=== PATIENT | female | born 1965 | race Caucasian/White ===

== ENCOUNTER 2020-09-20 21:28 | Emergency (ER) | payer SELFPAY ==
[2020-09-20 21:46] VITALS: BP 131/77; PULSE 84; RESP 16; TEMP 36.8; O2SAT 97; BMI 22.6
--- NOTE | 2020-09-21 00:15 | XRR_ITS ---
PROCEDURE INFORMATION: Exam: XR Lumbosacral Spine Exam date and time: 09/21/2020 12:15 AM Age: 55 years old Clinical indication: Injury or trauma; Blunt trauma (contusions or hematomas); Prior surgery; Surgery type: Gb; Patient HX: Fall last Saturday C/O persistent back pain. ; Additional info: Low back injury, fall TECHNIQUE: Imaging protocol: XR of the lumbosacral spine. Views: 2 or 3 views. COMPARISON: CT abdomen pelvis w con* [id number] 08/27/2018 1:50 AM FINDINGS: Bones/joints: There is mild scoliosis concave to the right. No fracture is identified. Intervertebral disc spaces are preserved. Soft tissues: Unremarkable. Vasculature: There are atherosclerotic changes in the abdominal aorta without evidence of aneurysm. XR/XR lumbar spine 2-3V* [id number] IMPRESSION: No fracture is identified.
--- NOTE | 2020-09-21 00:15 | XRR_ITS ---
PROCEDURE INFORMATION: Exam: XR Right Hip Exam date and time: 09/21/2020 12:15 AM Age: 55 years old Clinical indication: Injury or trauma; Blunt trauma (contusions or hematomas); Right; Patient HX: Fall last Saturday. C/O persistent hip pain. ; Additional info: Fall, pain TECHNIQUE: Imaging protocol: XR Right hip. Views: 2 or 3 views hip with pelvis when performed. COMPARISON: CT abdomen pelvis w con* [id number] 08/27/2018 1:50 AM FINDINGS: Bones/joints: Unremarkable. No acute fracture. Soft tissues: Unremarkable. XR/XR hip RT 2-3V wo/w pel* [id number] IMPRESSION: No acute findings.
--- NOTE | 2020-09-21 00:15 | ED_ITS ---
HPI - Back Pain/Injury General: Chief Complaint: Back Pain/Injury Stated Complaint: fell Saturday pm, increasing R hip & back pain Time Seen by Provider: 09/21/20 00:11 History of Present Illness: HPI Narrative: 55-year-old female comes in this evening for complaints of a fall with injury to the low back and right hip. Patient reports that she fell on the fourth, 3 days ago, since then she has had worsening pain over the last 2 to 3 days. Patient appears well. Patient appears no acute distress. Patient does appear in moderate pain. MD elicited complaint: fall Review of Systems General: Reports: 10 or more systems reviewed and unremarkable except in HPI and below Musc: Reports: other (Right lumbar back pain and hip pain.) Physical Exam Const: COMMON NORMALS: no acute distress and patient oriented x3 GENERAL APPEARANCE: cooperative HENMT: COMMON NORMALS: normocephalic and Normal external nose present HEAD & SCALP: normal to inspection and normocephalic NOSE: Normal external nose present MOUTH: Normal oral and palatal mucosa present Eye: GENERAL EYE: appearance normal, both eyes and all related structures Neck/C-Spine: COMMON NORMALS: full ROM Chest: COMMONS NORMALS: normal inspection of the chest Resp: COMMON NORMALS: normal respiratory effort EFFORT & INSPECTION: Yes able to speak in complete sentences Cardio: COMMON NORMALS: regular rate and regular rhythm RATE: regular rate RHYTHM: regular rhythm GI: COMMON NORMALS: non-tender Back/Pelvis: COMMON NORMALS: thoracic and lumbar spine normal to inspection LUMBAR SPINE/LOWER BACK: Yes paraspinal muscle spasm Lumbar paraspinal muscle spasm: right Extremity: COMMON NORMALS: normal to inspection Neuro: COMMON NORMALS: patient oriented x3 and moves all extremities Psych: COMMON NORMALS: mental status grossly normal and cooperative Skin: COMMON NORMALS: no rashes or lesions noted GENERAL SKIN EXAM: no rashes or lesions noted Course Vital Signs: Vital signs: Vital Signs Temperature 98.2 F 09/20/20 21:46 Pulse Rate 84 09/20/20 21:46 Respiratory Rate 20 H 09/21/20 00:39 Blood Pressure 131/77 09/20/20 21:46 Pulse Oximetry 97 09/20/20 21:46 MDM - Back Pain/Injury MDM Narrative: Medical decision making narrative: Patient comes in for evaluation of injury to the low back that started on Saturday. Patient reports increased pain and discomfort since falling on her right side on Saturday. On exam patient has some muscle tenderness to the right lower back and right hip area. Patient has normal range of motion. Patient is guarded with movement due to pain. Differential diagnosis includes fracture, strain, contusion. X-rays noted no fracture or other abnormality. Patient was given a dose of morphine 2 mg and 60 mg orphenadrine in the ER. Patient relief of pain. Patient was ordered tramadol for further treatment. Patient was also written a work note for 2 days and encouraged to stay as active as possible. Patient reported understanding. Discharge Plan Discharge Patient Disposition: Home Clinical Impression: Strain of lumbar region Qualifiers: Encounter type: initial encounter Qualified Code(s): S39.012A - Strain of muscle, fascia and tendon of lower back, initial encounter Contusion of hip, right Qualifiers: Encounter type: initial encounter Qualified Code(s): S70.01XA - Contusion of right hip, initial encounter Condition: Stable Prescriptions: New tramadol 50 mg tablet 50 mg PO Q6H PRN (Reason: pain) Qty: 12 RF: 0 Discharge Orders: Discharge ED (Routine); Ordered 09/21/20 Ordered By: Coleman Luna Discharge Diet: Usual diet Discharge Activity: Increase activity as tolerated Patient Instructions: Back Pain (ED), Opioid Safety Activity Restrictions/Additional Instructions: Activity as tolerated. Gentle stretching and range of motion exercises. Drink plenty of water with medication. Use acetaminophen for control of pain. Use tramadol for breakthrough pain. Follow-up with primary care for further instruction. Return to the emergency department for new concerns. Stand Alone Forms: Work/School Release Coding Level of Care Code ED Dental Amalgam Processor for Sherry Fwd Exam Comprehensive
[2020-09-21 00:39] VITALS: RESP 20
[2020-09-21] MEDS: morphine 4 mg/mL SDV 1 mL 2 MG IM (00:39)
[2020-09-21] MEDS: orphenadrine 30 mg/mL Inj 2 mL 60 MG IM (00:43)
[2020-09-21 01:08] VITALS: BP 133/65; PULSE 78; RESP 14; O2SAT 98
== END 2020-09-21 01:09 | disposition home or self-care (01) ==
PROVIDERS: Emergency Provider Nurse Practitioner Family
DX: S39.012A Strain of muscle, fascia and tendon of lower back, initial encounter (principal); S70.01XA Contusion of right hip, initial encounter; W19.XXXA Unspecified fall, initial encounter
CPT/HCPCS: 72100; 73502; 96372; 99283; J2270; J2360

== ENCOUNTER 2021-10-16 17:02 | Emergency (ER) | payer SELFPAY ==
[2021-10-16 17:11] VITALS: BP 144/73; PULSE 88; RESP 16; TEMP 37.1; O2SAT 98; BMI 21.4
--- NOTE | 2021-10-16 17:22 | ED_ITS ---
HPI - Extremity Problem General: Chief complaint: Extremity Problem,Nontraumatic Stated complaint: Left knee pain Time Seen by Provider: 10/16/21 17:22 History of Present Illness: 56-year-old female comes in today with complaints of posterior left knee pain for the last 2 to 3 days. Patient also reports some abnormal swelling behind the knee. Patient has a history of some knee pain but no recent injuries. Patient appears well. Patient is a tobacco smoker. Patient reports no routine medications. Associated symptoms: Deny chest pain Review of Systems General: Reports: 10 or more systems reviewed and unremarkable except in HPI and below Card: Denies: chest pain Resp: Denies: dyspnea Musc: Reports: extremity pain (Left knee) Physical Exam Const: COMMON NORMALS: alert HENMT: COMMON NORMALS: normocephalic HEAD & SCALP: normocephalic Neck/C-Spine: COMMON NORMALS: full ROM Resp: COMMON NORMALS: normal respiratory effort Cardio: COMMON NORMALS: regular rate RATE: regular rate Extremity: LEFT LOWER EXTREMITY: Yes knee joint (Posterior tenderness, no o bvious severe swelling) Left knee: Yes inspection, Yes palpation and Yes ROM Neuro: SENSORIUM/ORIENTATION: Yes alert Skin: COMMON NORMALS: no rashes or lesions noted GENERAL SKIN EXAM: no rashes or lesions noted Course Vital Signs: Vital signs: Vital Signs Temperature 98.8 F 10/16/21 17:43 Pulse Rate 88 10/16/21 17:43 Respiratory Rate 16 10/16/21 17:43 Blood Pressure 144/73 10/16/21 17:43 Pulse Oximetry 98 10/16/21 17:43 Oxygen Delivery Me thod 10/16/21 17:43 MDM - Extremity (Nontraumatic) Medical Decision Making 56-year-old female comes in today with left posterior knee pain. On exam patient has some mild swelling in the posterior knee but no induration or redness is noted. Patient also reports tenderness. Negative Homans' sign. Differential diagnosis includes but not limited to Renae's cyst, tendinitis, DVT, osteoarthritis. X-ray notes some OA of the knee with some meniscal calcinosis, no DVT, and a Renae's cyst probable. Reviewed exam with patient with recommendations for follow-up with primary care. Patient will be started on some prednisone 20 mg twice a day for next 5 days. Patient also given few hydrocodone for severe pain. Patient reported understanding of care plan need for follow-up or return to the ER. Lab Data Radiology Impressions Knee X-Ray 10/16/21 17:33 IMPRESSION: 1. Mild meniscal chondrocalcinosis. 2. Minimal mediolateral compartment osteoarthritis given some very mild joint space narrowing. Soft Tissue Ultrasound 10/16/21 17:33 IMPRESSION: Along the medial left knee there is a 1.8 x 0.5 x 2.3 cm mildly complex fluid collection, perhaps reflecting a Renae's cyst or complex effusion. Venous Duplex 10/16/21 17:33 IMPRESSION: No evidence of deep vein thrombosis. Discharge Plan Discharge Patient Disposition: Home Clinical Impression: Renae's cyst of knee Qualifiers: Laterality: left Qualified Code(s): M71.22 - Synovial cyst of popliteal space [Renae], left knee Condition: Stable Prescriptions: New hydrocodone-acetaminophen 5-325 mg tablet 1 tab PO Q8H PRN (Reason: pain (scale score 7-10)) Qty: 10 0RF prednisone 20 mg tablet 20 mg PO BID 5 Days Qty: 10 0RF Discontinued tramadol 50 mg tablet 50 mg PO Q6H PRN (Reason: pain) Qty: 12 0RF Discharge Orders: Discharge ED (Routine); Ordered 10/16/21 Ordered By: Coleman Luna Discharge Diet: Usual diet Discharge Activity: Increase activity as tolerated Patient Instructions: Renae Cyst (ED) Activity Restrictions/Additional Instructions: Follow-up with primary care or orthopedist for further treatment and evaluation. Return to ER for new concerns or worsening symptoms such as high fever, increased redness and swelling. Coding Level of Care Code ED Storage Architect for Sherry Fwusha Exam Detailed
--- NOTE | 2021-10-16 17:33 | USR_ITS ---
PROCEDURE INFORMATION: Exam: US Left Non-Vascular Joint or Other Extremity Structure Exam date and time: 10/16/2021 6:08 PM Age: 56 years old Clinical indication: Pain: Pain posterior left knee; Additional info: Posterior left knee, probabl renae's cyst TECHNIQUE: Imaging protocol: Left US joint or other nonvascular extremity structure or structures. Real-time ultrasound with image documentation. Limited study. Exam focused on the lower extremity in the region of clinical interest. COMPARISON: [place] [id number] 10/16/2021 6:01 PM FINDINGS: Soft tissues: Along the medial left knee there is a 1.8 x 0.5 x 2.3 cm mildly complex fluid collection, perhaps reflecting a Renae's cyst or complex effusion. US/US soft tissue/extremity [id number] IMPRESSION: Along the medial left knee there is a 1.8 x 0.5 x 2.3 cm mildly complex fluid collection, perhaps reflecting a Renae's cyst or complex effusion.
--- NOTE | 2021-10-16 17:33 | USR_ITS ---
PROCEDURE INFORMATION: Exam: US Duplex Left Lower Extremity Veins, Limited Exam date and time: 10/16/2021 6:01 PM Age: 56 years old Clinical indication: Pain; Leg, lower; Left; Additional info: R/O dvt TECHNIQUE: Imaging protocol: Real-time Duplex ultrasound of the Left Lower Extremity with 2-D batres scale, color Doppler flow and spectral waveform analysis with image documentation. Limited exam focused on the left lower extremity veins. COMPARISON: CT abdomen pelvis w con* [id number] 08/27/2018 1:50 AM FINDINGS: Left deep veins: Unremarkable. The common femoral, femoral, proximal profunda femoral and popliteal veins are patent without thrombus. Normal Doppler waveforms. Normal compressibility and/or augmentation response. Left superficial veins: Unremarkable. Saphenofemoral junction is patent without thrombus. Soft tissues: Unremarkable. US/CV venous duplex [facility] [id number] IMPRESSION: No evidence of deep vein thrombosis.
--- NOTE | 2021-10-16 17:33 | XRR_ITS ---
PROCEDURE INFORMATION: Exam: XR Left Knee Exam date and time: 10/16/2021 6:14 PM Age: 56 years old Clinical indication: Pain; Knee; Left; Additional info: Knee pain TECHNIQUE: Imaging protocol: Radiologic exam of the Left knee. Views: 3 views. COMPARISON: US soft tissue/extremity [id number] 10/16/2021 6:08 PM FINDINGS: Bones/joints: Mild meniscal chondrocalcinosis. Minimal mediolateral compartment osteoarthritis given some very mild joint space narrowing. Soft tissues: Normal. XR/XR knee LT 3V* [id number] IMPRESSION: 1. Mild meniscal chondrocalcinosis. 2. Minimal mediolateral compartment osteoarthritis given some very mild joint space narrowing.
[2021-10-16 17:43] VITALS: BP 144/73; PULSE 88; RESP 16; TEMP 37.1; O2SAT 98
[2021-10-16] MEDS: dexamethasone 10 mg/mL INJ IM (19:05)
[2021-10-16] MEDS: HYDROcodone-acetaminophen 5-325 mg Tablet 1 TAB PO (19:06)
[2021-10-16 19:08] VITALS: PULSE 74; RESP 16; O2SAT 97
== END 2021-10-16 19:10 | disposition home or self-care (01) ==
PROVIDERS: Emergency Provider Nurse Practitioner Family
DX: M71.22 Synovial cyst of popliteal space [Baker], left knee (principal)
CPT/HCPCS: 73562; 76882; 93971; 96372; 99284; J1100

== ENCOUNTER 2021-12-13 14:02 | Emergency (ER) | payer SELFPAY ==
[2021-12-13 14:07] VITALS: BP 138/80; PULSE 89; RESP 14; TEMP 36.4; O2SAT 100; BMI 20.7
--- NOTE | 2021-12-13 14:14 | W.ED.EXTPRO ---
HPI - Extremity Problem General: Chief complaint: Extremity Problem,Nontraumatic Stated complaint: left leg pain Time Seen by Provider: 12/13/21 14:11 History of Present Illness: 56-year-old female comes in today with complaints of posterior left knee pain. Patient has a history of a Renae's cyst to the knee that was diagnosed about 4 to 5 months ago. Patient comes in today for increased pain and discomfort with ambulation. Patient denies any new injury. Associated symptoms: Deny fever(s) Review of Systems Const: Denies: fever(s) ENMT: Denies: throat pain GI: Denies: abdominal pain : Denies: flank pain Musc: Reports: joint pain Physical Exam Const: COMMON NORMALS: alert HENMT: COMMON NORMALS: normocephalic HEAD & SCALP: normocephalic Neck/C-Spine: COMMON NORMALS: full ROM Resp: COMMON NORMALS: normal respiratory effort and clear to auscultation bilaterally AUSCULTATION: clear to auscultation bilaterally Cardio: COMMON NORMALS: regular rate RATE: regular rate : COMMON NORMALS: Yes no CVA tenderness BLADDER/KIDNEY EXAM: Yes no CVA tenderness Back/Pelvis: COMMON NORMALS: no CVA tenderness Extremity: RIGHT LOWER EXTREMITY: Yes knee joint (Mild swelling to the posterior knee no palpable nodule.) Right knee: Yes inspection, Yes palpation and Yes ROM and Yes lower leg (No redness or swelling distally. Negative Homans' sign) Neuro: SENSORIUM/ORIENTATION: Yes alert Course Vital Signs: Vital signs: Vital Signs Temperature 97.6 F 12/13/21 14:07 Pulse Rate 89 12/13/21 14:07 Respiratory Rate 14 12/13/21 14:07 Blood Pressure 138/80 12/13/21 14:07 Pulse Oximetry 100 12/13/21 14:07 Oxygen Delivery Me thod 12/13/21 14:07 MDM - Extremity (Nontraumatic) Medical Decision Making 56-year-old female comes in with left lower leg pain. On exam patient has some tenderness in the posterior aspect of the knee. Distal sensations and pulses are intact. No obvious swelling or redness is noted to the extremity. Differential diagnosis includes but not limited to osteoarthritis of the knee, Renae's cyst, DVT. No signs or symptoms of DVT is noted. Patient has had a recent ultrasound that showed a Renae's cyst and I believe this might be flaring up on patient. Recommend patient take acetaminophen and hydrocodone for pain. Patient was given 10 mg of dexamethasone for anti-inflammatory effect. Patient should follow-up with orthopedist for further evaluation and treatment. Patient stated understanding and agreed to plan. Discharge Plan Discharge Patient Disposition: Home Clinical Impression: Renae's cyst of knee Qualifiers: Laterality: left Qualified Code(s): M71.22 - Synovial cyst of popliteal space [Renae], left knee Condition: Stable Prescriptions: Continued hydrocodone-acetaminophen 5-325 mg tablet 1 tab PO Q8H PRN (Reason: pain (scale score 7-10)) Qty: 12 0RF Discharge Orders: Discharge ED (Routine); Ordered 12/13/21 Ordered By: Coleman Luna Discharge Diet: Usual diet Discharge Activity: Increase activity as tolerated Patient Instructions: Knee Pain (ED) Activity Restrictions/Additional Instructions: Activity as tolerated. Use acetaminophen to help control pain. Use hydrocodone for severe pain. Use ice and heat for further comfort. Increase activity as tolerated. Follow-up with orthopedist for further evaluation and treatment of Renae's cyst. Return to ER for new concerns or worsening symptoms such as high fever, increased redness and swelling to the lower leg, or new concerns. Coding Level of Care Code ED Employment And Claims Aide for Sherry Colin
[2021-12-13] MEDS: dexamethasone 10 mg/mL INJ IM (14:39)
== END 2021-12-13 14:47 | disposition home or self-care (01) ==
PROVIDERS: Emergency Provider Nurse Practitioner Family
DX: M71.22 Synovial cyst of popliteal space [Baker], left knee (principal)
CPT/HCPCS: 96372; 99284; J1100

== ENCOUNTER 2022-03-29 12:02 | Emergency (ER) | payer SELFPAY ==
[2022-03-29] VITALS (9 sets, daily range): BP systolic 101–116; BP diastolic 56–85; PULSE 79–95; RESP 16–18; TEMP 36.4; O2SAT 95–99; BMI 20.2
--- NOTE | 2022-03-29 13:16 | PC.PHAR ---
PT STATES SHE TAKES NO RX MEDICATIONS PT STATES ONLY BEEN TAKING OTC TYLENOL PRN
--- NOTE | 2022-03-29 13:23 | ECG_ITS ---
[facility] Test Date: 2022-03-29 Pat Name: Jennifer Li Department: Room: Gender: Female Medical Oncologist: : 1965 Requested By: Dick Avilez Order Number: [id number] Adam MD: Shiraz Tillman M.D. Measurements Intervals Artemas Rate: 83 P: 64 MD: 161 QRS: 69 QRSD: 88 T: 62 QT: 357 QTc: 421 Interpretive Statements SINUS RHYTHM Compared to ECG 05/01/2018 04:23:24 No significant changes Electronically Signed On 03-29-2022 20:43:52 MUD MIXER HELPER by Shiraz Tillman M.D. [id number]
--- NOTE | 2022-03-29 13:25 | ED_ITS ---
HPI - Weakness General: Chief complaint: Weakness Stated complaint: Fatigue and not feeling good. Time Seen by Provider: 03/29/22 13:09 Source: patient Mode of arrival: ambulatory Limitations: no limitations History of Present Illness: See nursing assessment. Patient with complaints of generalized fatigue for the past 2 weeks. She is also had pain to the left lower posterior rib cage. She denies any trauma. She states she has possibly had subjective fever occasionally. She denies any fever now. She does complain of mild nausea now. She denies any abdominal pain. She denies any chest pain. She denies any shortness of breath. She denies any peripheral edema. She denies any blood in her stool or melena. She denies any vomiting. Past medical history includes occasional anemia, peptic ulcer disease with 2 ruptured peptic ulcers that required surgical repair in the past. She reports that she has had bilateral ovaries and tubes removed. She states she is also had a cholecystectomy. She states she does smoke denies regular alcohol use. She takes no routine medications. She states she cannot take NSAIDs or aspirin due to history of peptic ulcer disease. She does not tolerate antihistamines. Associated symptoms: Reports nausea; Denies chest pain, chills, melena, fever(s) (No current or documented fever.), headache(s) or vomiting Review of Systems Const: Reports: fatigue; Denies: fever(s) (No current or documented fever.) or chills Eyes: Denies: change in vision ENMT: Reports: other (Patient has dentures); Denies: throat pain Card: Denies: chest pain or palpitations Resp: Denies: dyspnea or wheezing GI: Reports: nausea; Denies: abdominal pain, vomiting, hematemesis, dysphagia, change in bowel habits, hematochezia or melena : Reports: flank pain (Patient has no left flank pain but does have pain over the left lower ribs) and other (No rash.) Musc: Reports: other (No midline back pain. Mild pain to the left lower ribs. No crepitus); Denies: neck pain Skin/Breast: Denies: rash or pruritus Neuro: Denies: headache(s) or numbness in extremities Psych: Denies: anxiety Vick/Lymph: Denies: enlarged lymph nodes PFS ED Supplemental PFS Information: Laparotomies x2 due to ruptured peptic ulcers. Bilaterally ovaries removed. Cholecystectomy. Physical Exam Const: COMMON NORMALS: no acute distress, patient oriented x3, no limitations and well nourished GENERAL APPEARANCE: cooperative HENMT: COMMON NORMALS: normocephalic and atraumatic HEAD & SCALP: normocephalic and atraumatic FACE & SINUS: normal facial exam Eye: COMMON NORMALS: EOMs intact bilaterally Neck/C-Spine: COMMON NORMALS: full ROM, no lymphadenopathy, supple and no meningeal signs GENERAL: Yes normal visual inspection Lymph: LYMPHATIC: no lymphadenopathy noted Chest: COMMONS NORMALS: normal inspection of the chest and normal palpation of entire chest wall CHEST: No Ecchymosis present and No rash Resp: COMMON NORMALS: normal respiratory effort, No retractions and clear to auscultation bilaterally EFFORT & INSPECTION: No respiratory distress AUSCULTATION: clear to auscultation bilaterally Cardio: COMMON NORMALS: regular rate, regular rhythm and Peripheral pulses 2+ throughout JUGULAR VENOUS DISTENTION: no JVD RATE: regular rate RHYTHM: regular rhythm PERIPHERAL PULSES: Peripheral pulses 2+ throughout GI: COMMON NORMALS: Normal to inspection, nondistended, normoactive bowel sounds present and non-tender Back/Pelvis: OTHER: No CVA tenderness. However, patient does have a pain reproducible with palpation to left 11th and 12th ribs. No crepitus. No step-off. No palpable rib fracture. No ecchymosis or rash. Extremity: COMMON NORMALS: normal to inspection, full ROM and capillary refill normal Neuro: COMMON NORMALS: patient oriented x3, CN's II-XII intact bilaterally, no focal motor deficits and no sensory deficits noted MENINGEAL SIGNS: Yes no meningeal signs Psych: COMMON NORMALS: mental status grossly normal and Normal thought process present THOUGHT PROCESS: Normal thought process present Skin: COMMON NORMALS: no rashes or lesions noted and no wounds GENERAL SKIN EXAM: no rashes or lesions noted Course Vital Signs: Vital signs: Vital Signs Temperature 97.5 F L 03/29/22 12:09 Pulse Rate 81 03/29/22 17:00 Respiratory Rate 16 03/29/22 16:30 Blood Pressure 102/77 03/29/22 17:00 Pulse Oximetry 96 03/29/22 17:00 MDM - Weakness Medical Decision Making Left lower rib cage pain. Nausea. Fatigue. Lab Data 03/29/22 13:37 03/29/22 13:37 Radiology Impressions Chest X-Ray 03/29/22 13:24 IMPRESSION: Interval development of nonspecific nodular density left mid lung zone that may be arising from the left 7th rib. Recommend follow-up nonemergent CT chest for further assessment. Chest CT 03/29/22 14:41 IMPRESSION: 1. Abnormality described on chest radiograph corresponds to chronic healed rib fracture with callus formation LEFT 7th rib 2. No other acute findings. Laboratory Results WBC 8.7 10^3/uL (4.0-10.0) 03/29/22 13:37 RBC 4.75 10^6/uL (4.1-5.3) 03/29/22 13:37 Hgb 15.8 g/dL (11.5-15.3) H 03/29/22 13:37 Hct 47.3 % (37.0-47.0) H 03/29/22 13:37 MCV 99.6 fl (81-99) H 03/29/22 13:37 MCH 33.3 pg (28.0-34.0) 03/29/22 13:37 MCHC 33.4 g/dL (30.0-36.0) 03/29/22 13:37 RDW 11.9 % (12.1-15.1) L 03/29/22 13:37 Plt Count 249 10^3/cmm (130-400) 03/29/22 13:37 MPV 11.2 fL (7.4-10.4) H 03/29/22 13:37 Neut % (Auto) 77.2 % 03/29/22 13:37 Lymph % (Auto) 15.4 % 03/29/22 13:37 [place] % (Auto) 5.6 % 03/29/22 13:37 Eos % (Auto) 1.1 % 03/29/22 13:37 Baso % (Auto) 0.5 % 03/29/22 13:37 Neut # (Auto) 6.73 10^3/uL (1.8-7.7) 03/29/22 13:37 Lymph # (Auto) 1.3 10^3/uL (0.8-4.8) 03/29/22 13:37 [place] # (Auto) 0.5 10^3/uL (0.2-0.9) 03/29/22 13:37 Eos # (Auto) 0.1 10^3/uL (0.0-0.8) 03/29/22 13:37 Baso # (Auto) 0.0 10^3/uL (0.0-0.1) 03/29/22 13:37 Nucleated RBC % (auto) 0 % 03/29/22 13:37 Nucleated RBCs # 0.0 /100WBC 03/29/22 13:37 Sodium 135 mmol/L (136-145) L 03/29/22 13:37 Potassium 4.0 mmol/L (3.5-5.1) 03/29/22 13:37 Chloride 105 mmol/L (98-107) 03/29/22 13:37 Carbon Dioxide 17 mmol/L (22-29) L 03/29/22 13:37 Anion Gap 17.0 (5-19) 03/29/22 13:37 BUN 10 mg/dL (6-20) 03/29/22 13:37 Creatinine 0.6 mg/dL (0.5-0.9) 03/29/22 13:37 GFR Calculation 103.8 mL/min (90-130) 03/29/22 13:37 Glucose 96 mg/dL (65-115) 03/29/22 13:37 Calculated Osmolality 279 mOsm/kg (285-295) L 03/29/22 13:37 Calcium 9.6 mg/dL (8.5-10.5) 03/29/22 13:37 Total Bilirubin 0.4 mg/dL (0.15-1.2) 03/29/22 13:37 AST 19 U/L (0-32) 03/29/22 13:37 ALT 15 U/L (0-33) 03/29/22 13:37 Alkaline Phosphatase 101 U/L (35-105) 03/29/22 13:37 Troponin T Gen 5 ng/L 6 ng/L (0-10) 03/29/22 13:37 Total Protein 7.6 g/dL (6.6-8.7) 03/29/22 13:37 Albumin 4.6 g/dL (3.5-5.2) 03/29/22 13:37 Globulin 3.0 g/dL (1.3-4.6) 03/29/22 13:37 TSH 1.21 uIU/mL (0.27-4.20) 03/29/22 13:37 Urine Color Yellow (Yellow) 03/29/22 15:36 Urine Appearance Clear (CLEAR) 03/29/22 15:36 Urine pH 5 (5-7) 03/29/22 15:36 Ur Specific Brooks 1.010 (1.005-1.030) 03/29/22 15:36 Urine Protein Neg (Negative) 03/29/22 15:36 Urine Glucose (UA) Norm (Normal) 03/29/22 15:36 Urine Ketones Negative (Negative) 03/29/22 15:36 Urine Blood 2+ (Negative) H 03/29/22 15:36 Urine Nitrate Negative (Negative) 03/29/22 15:36 Urine Bilirubin Neg (Negative) 03/29/22 15:36 Urine Urobilinogen Neg mg/dL (Negative) 03/29/22 15:36 Ur Leukocyte Esterase Negative (Negative) 03/29/22 15:36 Urine RBC None /hpf (0-2) 03/29/22 15:36 Urine WBC None /hpf (0-5) 03/29/22 15:36 Ur Squamous Epith Cells 0-4 /hpf (0-5) H 03/29/22 15:36 Amorphous Sediment Not Reportable 03/29/22 15:36 Urine Bacteria None /hpf (NONE) 03/29/22 15:36 Imaging Data CXR: Radiologist's impression: PROCEDURE INFORMATION: Exam: XR Chest Exam date and time: 03/29/2022 1:28 PM Age: 56 years old Clinical indication: Other: Fatigue TECHNIQUE: Imaging protocol: Radiologic exam of the chest. Views: 1 view. COMPARISON: CR XR chest 1V [id number] 05/01/2018 4:33 AM FINDINGS: Lungs: There is a 1.5 cm hypoattenuated nodular density projecting over the peripheral aspect left mid lung zone and left 7th rib that has developed that may be arising from the left 7th rib but needs further imaging for clarification. Lung giles otherwise aerated and clear. There are no infiltrates. Pleural spaces: Unremarkable. No pleural effusion. No pneumothorax. Heart/Mediastinum: Unremarkable. No cardiomegaly. Bones/joints: See Lungs finding. XR/XR chest 1V portable [id number] IMPRESSION: Interval development of nonspecific nodular density left mid lung zone that may be arising from the left 7th rib. Recommend follow-up nonemergent CT chest for further assessment. ? Dictated By: Abdi Menchaca MD Signed By: Abdi Menchaca MD Signed Date/Time: 03/29/[address] Chest: Radiologist's impression: Ordering Provider/Ordering MD: Dick Wang MD Date of Service: 03/29/22 Procedure(s): CT chest w con* [id number] Accession Number(s): [id number] Report Number: [id number] WS: [id number] CT CHEST TECHNIQUE: Contrast enhanced CT of the chest with coronal and sagittal refo rmatted images. CLINICAL INFORMATION: L chest/rib calcified nodule; rib pain; smoker COMPARISON: None. DLP: 234.[address] scans at [facility] use at least one of these dose optimization techniques: automated exposure control; mA and/or kV adjustment per patient size (includes targeted exams where dose is matched to clinical indication); or iterative reconstruction. FINDINGS: Abnormality described on chest radiograph corresponds to chronic healed rib fracture with callus formation at LEFT 7th rib Normal caliber thoracic aorta. Normal caliber descending thoracic aorta. No med iastinal or hilar lymphadenopathy. No axillary lymphadenopathy. Hepatomegaly with diffuse fatty infiltration liver. Cholecystectomy clips. Normal portal vein and splenic vein. Adrenal glands are normal. Normal renal parenchymal enhancement. Both lungs are well aerated. No acute pulmonary infiltrates. A few calcified granulomas. No focal pneumonia or pleural fluid. Mild thoracic curve and kyphosis. Mild spondylitic changes thoracic spine. CT/CT chest w con* [id number] IMPRESSION: ? 1.? Abnormality described on chest radiograph corresponds to chronic healed rib fracture with callus formation LEFT 7th rib 2.? No other acute findings. ? Dictated By: Lito Zheng MD Signed By: Lito Zheng MD Signed Date/Time: 03/29/22 1622 EKG Data EKG 1: I personally reviewed and interpreted this EKG as follows: EKG interpretation date: 03/29/22 EKG interpretation time: 14:05 Prior EKG tracings: not available for review Interpretation: Normal sinus rhythm heart rate of 83. Normal MT interval, normal QT interval, normal axis. Normal QRS. Normal ST segment. Normal EKG. Discharge Plan Discharge Patient Disposition: Home Clinical Impression: Nausea Fatigue Qualifiers: Fatigue type: unspecified Qualified Code(s): R53.83 - Other fatigue Left rib fracture Qualifiers: Encounter type: subsequent encounter Rib fracture type: single rib Fracture type: closed Fracture healing: with routine healing Qualified Code(s): S22.32XD - Fracture of one rib, left side, subsequent encounter for fracture with routine healing Condition: Stable Prescriptions: New tramadol 50 mg tablet 50 mg PO TID PRN (Reason: Pain) Qty: 14 0RF ondansetron 4 mg tablet,disintegrating 4 mg PO Q6H PRN (Reason: nausea and vomiting) Qty: 10 1RF No Action Tylenol Ex Str Rapid Release 500 mg Tablet 1,000 mg PO Q6H PRN (Reason: Pain) Discharge Orders: Discharge ED (Routine); Ordered 03/29/22 Ordered By: Dick Wang Discharge Activity: Increase activity as tolerated Patient Instructions: Acute Nausea and Vomiting (ED), Fatigue (ED), Opioid Safety, Pain Management Activity Restrictions/Additional Instructions: You have an old left seventh rib fracture that is healing well. Laboratory results were essentially unremarkable. No evidence of infection. Follow-up with family doctor for further evaluation if symptoms persist. You may have just picked up a viral infection. May take tramadol or Tylenol for pain. However, tramadol does have Tylenol in it so you do not take Tylenol with the tramadol. May take Zofran as needed for nausea. Coding Level of Care Code ED Staff Development Nurse for [facility] Colin History Comprehensive Exam Comprehensive Medical Decision Making Moderate Complexity
[2022-03-29] MEDS: ondansetron 2 mg/ML SDV 2 mL 4 MG IVP (13:35)
[2022-03-29 13:54] LABS: Basophils % 0.5 %; Eosinophils # 0.1 10^3/uL (0.0-0.8); Eosinophils % 1.1 %; Hematocrit 47.3 % (37.0-47.0); Hemoglobin 15.8 g/dL (11.5-15.3); Lymphocytes # 1.3 10^3/uL (0.8-4.8); Lymphocytes % 15.4 %; Mean Corpuscular HGB Conc 33.4 g/dL (30.0-36.0); Mean Corpuscular Hemoglobin 33.3 pg (28.0-34.0); Mean Corpuscular Volume 99.6 fl (81-99); Mean Platelet Volume 11.2 fL (7.4-10.4); Monocytes # 0.5 10^3/uL (0.2-0.9); Monocytes % 5.6 %; Neutrophils # 6.73 10^3/uL (1.8-7.7); Neutrophils % 77.2 %; Nucleated Red Blood Cells % 0 %; Platelet Count 249 10^3/cmm (130-400); Red Blood Count 4.75 10^6/uL (4.1-5.3); Red Cell Distribution Width 11.9 % (12.1-15.1); White Blood Count 8.7 10^3/uL (4.0-10.0)
[2022-03-29 14:33] LABS: Troponin T (5th) Once 6 ng/L (0-10)
[2022-03-29 14:40] LABS: Alanine Aminotransferase 15 U/L (0-33); Albumin Level 4.6 g/dL (3.5-5.2); Alkaline Phosphatase 101 U/L (35-105); Aspartate Amino Transferase 19 U/L (0-32); Blood Urea Nitrogen 10 mg/dL (6-20); Calcium 9.6 mg/dL (8.5-10.5); Carbon Dioxide 17 mmol/L (22-29); Chloride 105 mmol/L (98-107); Glomerular Filtration Rate 103.8 mL/min (90-130); Glucose 96 mg/dL (65-115); Osmolality Calculated 279 mOsm/kg (285-295); Sodium 135 mmol/L (136-145); Thyroid Stimulating Hormone 1.21 uIU/mL (0.27-4.20); Total Bilirubin 0.4 mg/dL (0.15-1.2); Total Protein 7.6 g/dL (6.6-8.7)
--- NOTE | 2022-03-29 14:41 | CT_ITS ---
WS: [id number] CT CHEST TECHNIQUE: Contrast enhanced CT of the chest with coronal and sagittal reformatted images. CLINICAL INFORMATION: L chest/rib calcified nodule; rib pain; smoker COMPARISON: None. DLP: 234.[address] scans at [facility] use at least one of these dose optimization techniques: automated e xposure control; mA and/or kV adjustment per patient size (includes targeted exams where dose is matc hed to clinical indication); or iterative reconstruction. FINDINGS: Abnormality described on chest radiograph corresponds to chronic healed rib fracture with callus form ation at LEFT 7th rib Normal caliber thoracic aorta. Normal caliber descending thoracic aorta. No mediastinal or hilar lymp hadenopathy. No axillary lymphadenopathy. Hepatomegaly with diffuse fatty infiltration liver. Cholecystectomy clips. Normal portal vein and spl enic vein. Adrenal glands are normal. Normal renal parenchymal enhancement. Both lungs are well aerat ed. No acute pulmonary infiltrates. A few calcified granulomas. No focal pneumonia or pleural fluid. Mild thoracic curve and kyphosis. Mild spondylitic changes thoracic spine. CT/CT chest w con* [id number] IMPRESSION: 1. Abnormality described on chest radiograph corresponds to chronic healed rib fracture with callus formation LEFT 7th rib 2. No other acute findings.
[2022-03-29] MEDS: iohexol 350 mg/mL 500 mL Btl (per mL) IV (15:25)
[2022-03-29 16:56] LABS: Bilirubin Urine Neg (Negative); Blood Urine 2+ (Negative); Glucose Urine UA Norm (Normal); Ketones Urine Negative (Negative); Leukocyte Esterase Urine Negative (Negative); Nitrate Urine Negative (Negative); Protein Urine Neg (Negative); Urine Appearance Clear (CLEAR); Urine Color Yellow (Yellow); Urobilinogen Urine Neg (Negative); pH Urine 5 (5-7)
[2022-03-29 16:57] LABS: Add Urine Culture? No; Squamous Epithelial Cell Urine 0-4 /hpf (0-5)
== END 2022-03-29 17:34 | disposition home or self-care (01) ==
PROVIDERS: Emergency Provider Family Medicine
DX: S22.32XA Fracture of one rib, left side, initial encounter for closed fracture (principal); R53.83 Other fatigue; R11.0 Nausea; X58.XXXA Exposure to other specified factors, initial encounter
CPT/HCPCS: 71045; 71260; 80053; 81001; 84443; 84484; 85025; 93005; 96374; 99285; J2405; Q9967

== ENCOUNTER 2022-09-28 10:34 | Emergency (ER) | payer SELFPAY ==
[2022-09-28 10:39] VITALS: BP 111/69; PULSE 80; RESP 15; TEMP 36.6; O2SAT 99
[2022-09-28 11:01] VITALS: BP 130/75; PULSE 73; RESP 16; O2SAT 99
--- NOTE | 2022-09-28 11:48 | XRR_ITS ---
PROCEDURE INFORMATION: Exam: XR Lumbosacral Spine Exam date and time: 09/28/2022 12:18 PM Age: 57 years old Clinical indication: Low back pain TECHNIQUE: Imaging protocol: Radiologic exam of the lumbosacral spine. Views: 2 or 3 views. COMPARISON: CR XR lumbar spine 2-3V* [id number] 09/21/2020 12:26 AM FINDINGS: Bones/joints: Bones appear somewhat demineralized. Lumbar curvature and alignment is unremarkable. No compression fractures or spondylolisthesis. Pedicles are intact. Mild degenerative disc space narrowing at L1-L2 and L5-S1 with accompanying mild facet arthrosis L5-S1. Soft tissues: Unremarkable. XR/XR lumbar spine 2-3V* [id number] IMPRESSION: Mild degenerative changes L5-S1. No acute bony abnormalities.
--- NOTE | 2022-09-28 11:49 | W.ED.BACK ---
HPI - Back Pain/Injury General: Chief Complaint: Back Pain/Injury Stated Complaint: lower back/ R hip pain Time Seen by Provider: 09/28/22 11:30 History of Present Illness: Patient is a 57-year-old female comes to the ED with lower back pain. Symptoms started about 3 days ago. She denies any injury or trauma to cause back pain. 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 She states she has had chronic lower back pain over the past several years. Current back pain feels more severe than her chronic lower back pain. She rates her back pain a 5 out of 10 and says it radiates down into her right hip and into her right upper thigh. Denies any bladder or bowel incontinence, pelvic anesthesia or any weakness to lower extremities. Certain movements of torso or if she has been up and ambulating for a while worsens her back pain. This she has been taking [id number] Tylenol to help with pain. Associated symptoms: Deny abdominal pain, chills, dysuria, fatigue, fever(s), hematuria, nausea or vomiting Review of Systems Const: Denies: fever(s), chills or fatigue Eyes: Denies: change in vision or eye discomfort ENMT: Denies: throat pain, odynophagia, nasal discharge or nasal congestion Card: Denies: chest pain, palpitations, edema, swelling of feet/ankles, dyspnea on exertion or orthopnea Resp: Denies: dyspnea, productive cough or non-productive cough GI: Denies: abdominal pain, nausea, vomiting, diarrhea, constipation or hematochezia : Denies: flank pain, dysuria or hematuria Musc: Reports: back pain; Denies: neck pain or extremity swelling Skin/Breast: Denies: rash or new lesions Neuro: Denies: headache(s), numbness in extremities or weakness in extremities PFS ED PFSH: Medical History (Updated 09/29/22 @ 07:38 by EHSAN Velazquez) No pertinent family history Surgical History (Updated 09/29/22 @ 07:38 by EHSAN Velazquez) No pertinent past surgical history Physical Exam Const: COMMON NORMALS: no acute distress, patient oriented x3 and alert HENMT: COMMON NORMALS: normocephalic HEAD & SCALP: normocephalic MOUTH: Normal oral and palatal mucosa present THROAT: posterior oropharynx normal and uvula midline Neck/C-Spine: COMMON NORMALS: supple GENERAL: Yes normal visual inspection Resp: COMMON NORMALS: normal respiratory effort, No retractions, No use of accessory muscles and clear to auscultation bilaterally AUSCULTATION: clear to auscultation bilaterally Cardio: COMMON NORMALS: regular rate, regular rhythm, S1 normal heart sound present, S2 normal heart sound present, No gallops present (Cardio), No clicks present (Cardio), No murmurs present (Cardio) and Peripheral pulses 2+ throughout RATE: regular rate RHYTHM: regular rhythm HEART SOUNDS: S1 normal heart sound present and S2 normal heart sound present PERIPHERAL PULSES: Peripheral pulses 2+ throughout GI: COMMON NORMALS: Normal to inspection, nondistended, normoactive bowel sounds present, Soft to palpation, non-tender and no masses PALPATION: Yes Soft to palpation : COMMON NORMALS: Yes no CVA tenderness BLADDER/KIDNEY EXAM: Yes no CVA tenderness Back/Pelvis: COMMON NORMALS: no CVA tenderness LUMBAR SPINE/LOWER BACK: Yes pain with ROM, No lumbar spinal tenderness and Yes paraspinal muscle tenderness Lumbar paraspinal muscle tenderness: bilateral Extremity: COMMON NORMALS: normal to inspection Neuro: COMMON NORMALS: patient oriented x3 SENSORIUM/ORIENTATION: Yes alert GAIT: Yes Normal gait present Skin: GENERAL SKIN EXAM: dry skin Course Vital Signs: Vital signs: Vital Signs Temperature 97.8 F 09/28/22 10:39 Pulse Rate 73 09/28/22 11:01 Respiratory Rate 16 09/28/22 11:01 Blood Pressure 130/75 09/28/22 11:01 Pulse Oximetry 99 09/28/22 11:01 Oxygen Delivery Me thod Room Air 09/28/22 11:01 MDM - Back Pain/Injury Medical Decision Making Patient is a 57-year-old female comes to the ED with lower back pain. Symptoms started about 3 days ago. She denies any injury or trauma to cause back pain. 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 She states she has had chronic lower back pain over the past several years. Current back pain feels more severe than her chronic lower back pain. She rates her back pain a 5 out of 10 and says it radiates down into her right hip and into her right upper thigh. Denies any bladder or bowel incontinence, pelvic anesthesia or any weakness to lower extremities. Certain movements of torso or if she has been up and ambulating for a while worsens her back pain. This she has been taking [id number] Tylenol to help with pain. Vitals are stable. Patient has some bilateral paraspinal muscle tenderness of the lumbar spine but rest of exam is benign. X-ray of lumbar spine showed mild degenerative changes of L5-S1. No other acute findings noted. Patient was given a dose of Toradol, muscle relaxer and Decadron here in the ED. She was diagnosed with lumbar back pain and degenerative disc disease in the lumbar spine. She was sent home with a prescription for Medrol Dosepak and muscle relaxer. Told to follow-up with a PCP within the next week for reevaluation. Return to ED precautions given. Patient understood and agreed with plan. Labs Radiology Impressions Lumbar Spine X-Ray 09/28/22 11:48 IMPRESSION: Mild degenerative changes L5-S1. No acute bony abnormalities. Discharge Plan Discharge Patient Disposition: Home Clinical Impression: Lumbar back pain, Degenerative disc disease, lumbar Condition: Stable Prescriptions: New methocarbamol 750 mg tablet 750 mg PO Q8H PRN (Reason: muscle spasms and pain) Qty: 20 0RF Medrol (Ozzy) 4 mg tablets,dose pack See Rx Instructions .ROUTE .COMPLEX Qty: 21 0RF Rx Instructions: orally per package directions No Action acetaminophen 325 mg Tablet 650 mg PO QID PRN (Reason: Pain) Daily Multivitamin Tablet 1 tab PO DAILY Discharge Orders: Discharge ED (Routine); Ordered 09/28/22 Ordered By: Danielito Enrique Discharge Diet: Regular Discharge Activity: Increase activity as tolerated Patient Instructions: Acute Low Back Pain (ED) Activity Restrictions/Additional Instructions: Follow-up with medical provider as directed in the next 5 to 7 days for reevaluation. Stretch lower back daily and apply cold pack on lower back multiple times a day to help with symptoms. Take medications as prescribed. Return to the ER or your medical provider if condition worsens. Please read and understand discharge instructions. Thank you for choosing [facility] for your healthcare needs today. Please realize this is an emergency room and that we are providing you with a medical screening exam and this may not be complete and all inclusive of all the testing and or work up that you may need to determine your ailment or severity of your illness. It is very important that you follow up as instructed or that you return to the Emergency Department should you have concerns or if your condition changes or worsens in any way. Stand Alone Forms: Work/School Release Coding Level of Care Code ED Radar Engineer for Sherry Colin
[2022-09-28] MEDS: dexamethasone 10 mg/mL INJ IM (12:25)
[2022-09-28] MEDS: methocarbamol 750 mg Tablet PO (12:25)
[2022-09-28] MEDS: ketorolac 60 mg/2 mL INJ IM (12:25)
== END 2022-09-28 13:31 | disposition home or self-care (01) ==
PROVIDERS: Emergency Provider Physician Assistant
DX: M51.36 Other intervertebral disc degeneration, lumbar region (principal)
CPT/HCPCS: 72100; 96372; 99284

== ENCOUNTER → 2023-03-05 08:09 | Outpatient (BNVA) | payer SELFPAY | PROVIDERS: Visit Provider Nurse Practitioner Family | DX: U07.1 COVID-19 (principal); R68.89 Other general symptoms and signs | CPT/HCPCS: 87400; 87426 ==

== ENCOUNTER 2023-07-03 15:56 | Emergency (ER) | payer SELFPAY ==
[2023-07-03 15:59] VITALS: BP 161/86; PULSE 88; RESP 16; TEMP 36.6; O2SAT 98
--- NOTE | 2023-07-03 16:02 | W.ED.BACK ---
HPI - Back Pain/Injury General: Chief Complaint: Back Pain/Injury Stated Complaint: back pain Time Seen by Provider: 07/03/23 16:02 Source: patient Mode of arrival: ambulatory Limitations: no limitations History of Present Illness: Patient is a 57-year-old female presents to ED today with complaint of back pain. 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 She has chronic lower back pain. No radicular symptoms. No chest or abdominal pain. MD elicited complaint: back pain Pertinent past history: prior back pain Onset (ago): hour(s) Timing: constant Severity: moderate Similar Symptoms Previously: No Location: thoracic spine Radiation: none Exacerbating factors: movement Relieving factors: none Associated symptoms: Reports no associated symptoms; Deny abdominal pain, change in bowel habits, dysuria, syncope or urinary urgency Work related injury: Yes Review of Systems Card: Denies: chest pain, edema, swelling of feet/ankles, lightheadedness, syncope, pre-syncope, dyspnea on exertion or orthopnea Resp: Denies: dyspnea, productive cough, non-productive cough, wheezing, hemoptysis or chest congestion GI: Denies: abdominal pain or change in bowel habits : Denies: flank pain, difficulty voiding, dysuria, urinary frequency, urinary urgency or urinary hesitancy Musc: Reports: back pain; Denies: neck pain, extremity pain, extremity swelling, joint pain or joint swelling Skin/Breast: Denies: rash Neuro: Denies: headache(s), numbness in extremities, weakness in extremities, sensory changes or dizziness [facility] ED PFSH: Medical History No pertinent family history Surgical History No pertinent past surgical history Physical Exam Const: COMMON NORMALS: no acute distress, average body habitus, patient oriented x3, no limitations, healthy appearing, alert and well nourished Back/Pelvis: THORACIC SPINE/UPPER BACK: Yes normal to inspection, Yes pain with ROM, Yes thoracic spinal tenderness, No paraspinal muscle tenderness and No paraspinal muscle spasm LUMBAR SPINE/LOWER BACK: Yes normal to inspection, No pain with ROM, No lumbar spinal tenderness, No paraspinal muscle tenderness, No paraspinal muscle spasm and Yes straight leg raise negative bilaterally PELVIS: Yes buttocks normal and No sciatic notch tenderness SACRUM: no tenderness COCCYX: no tenderness Extremity: GENERAL: Yes normal exam except as noted Neuro: LACY COMA SCALE: document GCS findings [place] coma scale eye opening: Spontaneous [place] coma scale verbal response: Orientated Lacy coma scale motor response: Obey commands [place] coma scale total score: 15 COMMON NORMALS: patient oriented x3, moves all extremities, no focal motor deficits and no sensory deficits noted SENSORIUM/ORIENTATION: Yes alert Skin: COMMON NORMALS: no rashes or lesions noted GENERAL SKIN EXAM: no rashes or lesions noted Course Vital Signs: Vital signs: Vital Signs Temperature 97.8 F 07/03/23 15:59 Pulse Rate 88 07/03/23 15:59 Respiratory Rate 16 07/03/23 15:59 Blood Pressure 161/86 07/03/23 15:59 Pulse Oximetry 98 07/03/23 15:59 Oxygen Delivery Me thod Room Air 07/03/23 15:59 MDM - Back Pain/Injury Medical Decision Making XR negative. Patient most likely with a thoracic back strain. She will be placed on anti-inflammatories and muscle relaxers. Return to ED precautions given. Differential Diagnosis Likely thoracic back pain Labs Radiology Impressions Thoracic Spine X-Ray 07/03/23 16:07 IMPRESSION: 1. No acute fracture of the thoracic spine. CT scan would be recommended if there is continuing clinical concern for fracture. 2. Stable mild degenerative changes in the spine. 3. Incidental/nonacute findings are listed in the report. All radiology interpretation(s) finalized by discharge Discharge Plan Discharge Patient Disposition: Home Clinical Impression: Strain of thoracic back region Condition: Stable Prescriptions: New methocarbamol 500 mg tablet 1,000 mg PO Q8H Qty: 30 0RF diclofenac sodium 50 mg tablet,delayed release (DR/EC) 50 mg PO Q12H PRN (Reason: pain) Qty: 20 0RF No Action ondansetron HCl 8 mg tablet 8 mg PO Q12H PRN (Reason: nausea and vomiting) Qty: 10 0RF acetaminophen 325 mg Tablet 650 mg PO QID PRN (Reason: Pain) Daily Multivitamin Tablet 1 tab PO DAILY Discharge Orders: Discharge ED (Routine); Ordered 07/03/23 Ordered By: Nina Ledbetter Patient Instructions: Thoracic Back Strain (ED) Stand Alone Forms: Work/School Release Coding Level of Care Code ED Moisture Tester for Sherry Colin
--- NOTE | 2023-07-03 16:07 | XRR_ITS ---
PROCEDURE INFORMATION: Exam: XR Thoracic Spine Exam date and time: 07/03/2023 4:27 PM Age: 57 years old Clinical indication: Injury or trauma; Other: Hurt back moving a patient; Sprain or strain; Additional info: Pain/injury TECHNIQUE: Imaging protocol: Radiologic exam of the thoracic spine. Views: 3 views. COMPARISON: CT chest w con* [id number] 03/29/2022 3:21 PM FINDINGS: Bones/joints: Vertebral body height is maintained. No subluxation. Bones are diffusely osteopenic. Stable small osteophytes at multiple thoracic spine levels. No acute fracture. Soft tissues: No paravertebral soft tissue abnormality. No radiopaque foreign body. Organs: Stable findings consistent with a previous cholecystectomy with surgical clips in the right upper quadrant. Vasculature: Vascular calcifications in the aorta. XR/XR thoracic spine 3V* [id number] IMPRESSION: 1. No acute fracture of the thoracic spine. CT scan would be recommended if there is continuing clinical concern for fracture. 2. Stable mild degenerative changes in the spine. 3. Incidental/nonacute findings are listed in the report.
== END 2023-07-03 17:25 | disposition home or self-care (01) ==
PROVIDERS: Emergency Provider Physician Assistant
DX: S29.012A Strain of muscle and tendon of back wall of thorax, initial encounter (principal); X50.0XXA Overexertion from strenuous movement or load, initial encounter; Y93.F2 Activity, caregiving, lifting; Y99.0 Civilian activity done for income or pay
CPT/HCPCS: 72072; 99283

== ENCOUNTER 2023-10-17 09:06 | Emergency (ER) | payer SELFPAY ==
[2023-10-17 09:13] VITALS: BP 124/73; PULSE 70; RESP 18; TEMP 36.8; O2SAT 100; BMI 19.1
--- NOTE | 2023-10-17 09:39 | ED_ITS ---
HPI - Back Pain/Injury General: Chief Complaint: Back Pain/Injury Stated Complaint: lower back pain Time Seen by Provider: 10/17/23 09:14 History of Present Illness: 58-year-old female presents to the the [facility] ency room with complaints of low back pain she was doing a lot of heavy lifting lately move some furniture earlier in the week no trauma or fall. She has not had any history of compression fracture she states she is not able to take NSAIDs because of stomach upset. Although she was prescribed diclofenac in June of this year which she did take. No urinary retention or fecal incontinence. No recent trauma. Associated symptoms: Deny abdominal pain, chills, dysuria, fever(s) or urinary urgency Review of Systems Const: Denies: fever(s) or chills Card: Denies: chest pain Resp: Denies: dyspnea GI: Denies: abdominal pain : Denies: dysuria, urinary frequency or urinary urgency Musc: Reports: back pain; Denies: neck pain or extremity pain Skin/Breast: Denies: rash PFSH ED PFSH: Medical History (Updated 10/17/23 @ 10:59 by Dave Barrientos DO) No pertinent family history Surgical History (Updated 10/17/23 @ 09:47 by Dave Barrientos DO) History of laparotomy Perforated gastric ulcer Physical Exam Const: COMMON NORMALS: no acute distress GENERAL APPEARANCE: cooperative and comfortable ORIENTATION/CONSCIOUSNESS: Yes awake, Yes oriented to person, Yes oriented to place and Yes oriented to time HENMT: COMMON NORMALS: normocephalic, atraumatic and hearing grossly normal bilaterally HEAD & SCALP: normocephalic and atraumatic Resp: COMMON NORMALS: normal respiratory effort, No retractions, No use of accessory muscles and clear to auscultation bilaterally AUSCULTATION: clear to auscultation bilaterally Cardio: COMMON NORMALS: regular rate, regular rhythm and No murmurs present (Cardio) RATE: regular rate RHYTHM: regular rhythm GI: COMMON NORMALS: Soft to palpation and No hepatosplenomegaly present AUSCULTATION: Yes normoactive bowel sounds PALPATION: Yes Soft to palpation, No Tenderness to palpation present (GI), No Guarding due to palpation present (GI) and Yes No hepatosplenomegaly present Extremity: COMMON NORMALS: normal to inspection, capillary refill normal, no clubbing, cyanosis or edema, no calf tenderness and no pedal edema Neuro: SENSORIUM/ORIENTATION: Yes oriented to person, Yes oriented to place and Yes oriented to time OTHER: Deep tendon reflexes +2/4 patellar tendons +1-4 at the Achilles and dorsum plantarflexion 5 of 5 straight leg raising negative sensation lower extremities normal Skin: COMMON NORMALS: no rashes or lesions noted GENERAL SKIN EXAM: no rashes or lesions noted Course Vital Signs: Vital signs: Vital Signs Temperature 98.2 F 10/17/23 09:13 Pulse Rate 70 10/17/23 09:13 Respiratory Rate 18 10/17/23 09:13 Blood Pressure 124/73 10/17/23 09:13 Pulse Oximetry 100 10/17/23 09:13 Oxygen Delivery Me thod Room Air 10/17/23 09:13 MDM - Back Pain/Injury Medical Decision Making Patient presented to the emergency room with back pain improved with medications given discharged home on steroid taper tizanidine and tramadol. Patient is not able to take anti-inflammatories. No red flag signs or symptoms at this time. Medical Records I reviewed the patient's medical records. No radiology studies performed this visit Discharge Plan Discharge Patient Disposition: Home Clinical Impression: Lumbar radiculopathy Condition: Stable Prescriptions: New tizanidine 4 mg tablet 4 mg PO Q6H PRN (Reason: muscle spasticity) Qty: 20 0RF Rx Instructions: do not exceed 3 doses per 24 hrs Medrol (Ozzy) 4 mg tablets,dose pack See Rx Instructions .ROUTE .COMPLEX Qty: 21 0RF Rx Instructions: orally per package directions tramadol 50 mg tablet 50 mg PO Q6H PRN (Reason: pain) Qty: 14 0RF No Action acetaminophen 325 mg Tablet 650 mg PO QID PRN (Reason: Pain) multivitamin [Daily Multivitamin] Tablet 1 tab PO DAILY Discharge Orders: Discharge ED (Routine); Ordered 10/17/23 Ordered By: Dave Barrientos Discharge Diet: Usual diet Discharge Activity: Increase activity as tolerated Patient Instructions: Lumbar Radiculopathy (ED), Lower Back Exercises (ED), Opioid Safety, Pain Management Activity Restrictions/Additional Instructions: Thank you for choosing [facility] for your healthcare needs today. It is very important that you follow up as instructed or that you return to the Emergency Department should you have concerns or if your condition changes or worsens in any way. You were seen for complaints of back pain. Use the medications you are prescribed to help relieve the discomfort. Follow-up with your primary care doctor to reevaluate over the next 1 to 2 weeks you may need further evaluation including possible MRI. Stand Alone Forms: Work/School Release Coding Level of Care Code ED Arboriculturist for Sherry Colin
[2023-10-17] MEDS: orphenadrine 30 mg/mL Inj 2 mL 60 MG IM (10:03)
[2023-10-17] MEDS: dexamethasone 10 mg/mL INJ IM (10:03)
== END 2023-10-17 11:39 | disposition home or self-care (01) ==
PROVIDERS: Emergency Provider Family Medicine
DX: M54.16 Radiculopathy, lumbar region (principal)
CPT/HCPCS: 96372; 99284; J1100; J2360